=== PATIENT | female | born 1980 | race Two or more races ===

== ENCOUNTER 2018-01-01 20:13 | Observation (INO) | payer MEDICAID ==
[~2018-01-01] VITALS: Ht 154.9 cm; Wt 69.9 kg
[2018-01-01] MEDS ORDERED: NKM (20:38)
[2018-01-01 20:40] VITALS: BP 135/84
[2018-01-01 21:00] VITALS: BP 116/70
[2018-01-01 21:02] VITALS: BP 126/71
[2018-01-01 21:04] VITALS: BP 120/63
--- NOTE | 2018-01-01 21:07 | Emergency Room Report ---
History of Present Illness General Chief Complaint: Abdominal Pain Source: Patient Present Illness HPI Patient presents after syncopal episode. She was going to the bathroom and had some dysuria. She was having some lower abdominal pain that's fairly severe. She rates it 5/10 and nonradiating. It's constant. She has never passed out before. She woke up on the bathroom floor after banging her head when she passed out. She has been feeling nauseated ever since that. Her last period was abnormal. She bled minimall on the and with her last period being on November 19. She doesn't have breast tenderness. She does have a 5-year-old daughter at home. She denies any fevers or chills. No current vaginal bleeding or discharge. She is trying to get . No fevers, chest pain, palpitations, rashes, diarrhea, joint pain, polies. No major medical problems. She believes she is Rh +. Allergies: Coded Allergies: No Known Allergies (Unverified , 01/01/18) Patient History Past Medical History: see triage record Social History: Denies: smoking, alcohol use, drug use Social History Narrative 7 yo at home - Last Menstrual Period: 12/20/17 abnormal : 1 Para: 1 Reviewed Nursing Documentation: PMH: Agreed; PSxH: Agreed Nursing Documentation-PM Past Medical History: No Stated History Review of Systems All Other Systems: negative except mentioned in HPI Physical Exam Vital Signs Date Time Temp Pulse Resp B/P (MAP) Pulse Ox O2 Delivery O2 Flow Rate FiO2 01/01/18 20:33 98.3 75 16 135/84 98 Room Air 98.2 Sp02 EP Interpretation: reviewed, normal General Appearance: well appearing, no apparent distress, GCS 15 Head: normocephalic, other - tender forehead Eyes: bilateral eye normal inspection, bilateral eye PERRL, bilateral eye EOMI ENT: moist mucus membranes Neck: supple Respiratory: lungs clear, normal breath sounds Cardiovascular #1: regular rate, rhythm Cardiovascular #2: 2+ radial (R) Gastrointestinal: normal inspection, no mass, non-distended, no rebound, guarding - suprapubic, tenderness - suprapubic Genitourinary: no CVA tenderness, deferred - for ultrasound Musculoskeletal: back normal, gait/station normal, normal range of motion Neurologic: alert, oriented x3, bakery manager III-XII nml as tested, motor strength/tone normal, DTRs symmetric, sensory intact, cerebellar normal Psychiatric: mood/affect normal Skin: normal inspection, warm/dry Medical Decision Making Diagnostic Impression: Primary Impression: Ruptured ectopic Additional Impression: Syncope Qualified Codes: R55 - Syncope and collapse ER Course Patient presents with syncope lower abdominal pain and abnormal last period. Differential includes , ectopic, ruptured ovarian cyst, UTI, vasovagal , hemorrhagic shock amongst others. Evaluation will be with labs and ultrasound. Patient be evaluated with orthostatic vital signs and receive IV hydration. She is declining morphine at this time even though the pain is 8/10 she'll be given Tylenol. Patient not orthostatic. Urine is positive. Ultrasound shows an ectopic 6 weeks 3 days with a yolk sac in the left adnexa. There is also fluid in the cul-de- sac. The patient says she has waves of pain that are severe rigidity almost passed out. We are calling our PHP SOFTWARE ENGINEER. Discussed with Dr. Ovalle at 22:40 who requests quantitative HCG. Beta 23,363. Dr. Ovalle calling nursing general road supervisor for bringing in OR team. Laboratory Tests Test 01/01/18 20:47 01/01/18 21:14 White Blood Count 12.5 K/UL (4.8-10.8) H Red Blood Count 4.57 M/UL (4.20-5.40) Hemoglobin 13.8 G/DL (12.0-16.0) Hematocrit 39.8 % (37.0-47.0) Mean Corpuscular Volume 87 FL (80-99) Mean Corpuscular Hemoglobin 30.2 PG (27.0-31.0) Mean Corpuscular Hemoglobin Concent 34.7 G/DL (32.0-36.0) Red Cell Distribution Width 11.4 % (11.6-14.8) L Platelet Count 359 K/UL (150-450) Mean Platelet Volume 7.1 FL (6.5-10.1) Neutrophils (%) (Auto) 76.3 % (45.0-75.0) H Lymphocytes (%) (Auto) 16.3 % (20.0-45.0) L Monocytes (%) (Auto) 5.1 % (1.0-10.0) Eosinophils (%) (Auto) 1.4 % (0.0-3.0) Basophils (%) (Auto) 0.9 % (0.0-2.0) Prothrombin Time 9.3 SEC (9.30-11.50) Prothrombin Time INR 0.9 (0.9-1.1) PTT 25 SEC (23-33) Urine Color Pale yellow Urine Appearance Clear Urine pH 6.5 (4.5-8.0) Urine Specific [place] 1.010 (1.005-1.035) Urine Protein Negative (NEGATIVE) Urine Glucose (UA) Negative (NEGATIVE) Urine Ketones Negative (NEGATIVE) Urine Occult Blood 2+ (NEGATIVE) H Urine Nitrite Negative (NEGATIVE) Urine Bilirubin Negative (NEGATIVE) Urine Urobilinogen Normal MG/DL (0.0-1.0) Urine Leukocyte Esterase Negative (NEGATIVE) Urine RBC 0-2 /HPF (0 - 2) Urine WBC 0-2 /HPF (0 - 2) Urine Squamous Epithelial Cells Few /LPF (NONE/OCC) Urine Bacteria Few /HPF (NONE) Urine HCG, Qualitative Positive (NEGATIVE) Sodium Level 141 MMOL/L (136-145) Potassium Level 3.9 MMOL/L (3.5-5.1) Chloride Level 105 MMOL/L (98-107) Carbon Dioxide Level 25 MMOL/L (21-32) Anion Gap 11 mmol/L (5-15) Blood Urea Nitrogen 7 mg/dL (7-18) Creatinine 0.6 MG/DL (0.55-1.30) Estimate Glomerular Filtration Rate > 60 mL/min (>60) Glucose Level 98 MG/DL (74-106) Calcium Level 9.2 MG/DL (8.5-10.1) Total Bilirubin 0.2 MG/DL (0.2-1.0) Aspartate Amino Transferase (AST) 24 U/L (15-37) Alanine Aminotransferase (ALT) 38 U/L (12-78) Alkaline Phosphatase 77 U/L (46-116) Total Protein 7.7 G/DL (6.4-8.2) Albumin 3.9 G/DL (3.4-5.0) Globulin 3.8 g/dL Albumin/Globulin Ratio 1.0 (1.0-2.7) Lipase 111 U/L (73-393) Human Chorionic Gonadotropin, Quant 54435 mIU/mL (1-6) H Rhythm Strip Diag. Results Rhythm: NSR, no PVC's, no ectopy CT/MRI/US Diagnostic Results CT/MRI/US Diagnostic Results : Imaging Test Ordered: pelvic Impression adnexal ectopic 6 weeks, 3 days with heart beat 140 + fluid in cul de sac Last Vital Signs Date Time Temp Pulse Resp B/P (MAP) Pulse Ox O2 Delivery O2 Flow Rate FiO2 01/02/18 00:50 98.3 70 15 120/63 100 Room Air 98.3 Status: improved Disposition: ADMITTED INPATIENT Condition: Serious Brendan Garza M.D. Jan 01, 2018 21:07
[2018-01-01 21:41] LABS: BASOPHILS % (AUTO) 0.9 % (0.0-2.0); EOSINOPHILS % (AUTO) 1.4 % (0.0-3.0); HEMATOCRIT 39.8 % (37.0-47.0); HEMOGLOBIN 13.8 G/DL (12.0-16.0); LYMPHOCYTES % (AUTO) 16.3 % (20.0-45.0); MEAN CORPUSCULAR VOLUME 87 FL (80-99); MONOCYTES % (AUTO) 5.1 % (1.0-10.0); NEUTROPHILS % (AUTO) 76.3 % (45.0-75.0); PLATELET COUNT 359 K/UL (150-450); RED BLOOD COUNT 4.57 M/UL (4.20-5.40); RED CELL DISTRIBUTION WIDTH 11.4 % (11.6-14.8); WHITE BLOOD COUNT 12.5 K/UL (4.8-10.8)
[2018-01-01 21:46] LABS: APPEARANCE,URINE CLEAR; BILIRUBIN, URINE NEGATIVE (NEGATIVE); COLOR,URINE PALE YELLOW; GLUCOSE, URINE (UA) NEGATIVE (NEGATIVE); KETONES,URINE NEGATIVE (NEGATIVE); LEUKOCYTE ESTERASE ,URINE NEGATIVE (NEGATIVE); NITRITE,URINE NEGATIVE (NEGATIVE); PH,URINE 6.5 (4.5-8.0); PROTEIN,URINE NEGATIVE (NEGATIVE); UROBILINOGEN,URINE NORMAL MG/DL (0.0-1.0)
[2018-01-01 21:59] LABS: ANION GAP 11 mmol/L (5-15); BLOOD UREA NITROGEN 7 mg/dL (7-18); CALCIUM 9.2 MG/DL (8.5-10.1); CARBON DIOXIDE 25 MMOL/L (21-32); CHLORIDE 105 MMOL/L (98-107); CREATININE 0.6 MG/DL (0.55-1.30); INR 0.9 (0.9-1.1); POTASSIUM 3.9 MMOL/L (3.5-5.1); SODIUM 141 MMOL/L (136-145)
[2018-01-01 22:03] LABS: ALANINE AMINOTRANSFERASE 38 U/L (12-78); ALBUMIN 3.9 G/DL (3.4-5.0); ALKALINE PHOSPHATASE 77 U/L (46-116); ASPARTATE AMINO TRANSFERASE 24 U/L (15-37); BILIRUBIN,TOTAL 0.2 MG/DL (0.2-1.0)
[2018-01-01 22:30] VITALS: BP 116/68
[2018-01-02] VITALS (9 sets, daily range): BP systolic 96–120; BP diastolic 51–67
[2018-01-02] MEDS ORDERED: Ketorolac 30mg Inj ONE (01:00)
[2018-01-02] MEDS ORDERED: fentaNYL 100 mcg/2 mL IV ONE (01:00)
[2018-01-02] MEDS ORDERED: Midazolam 2mg/2ml Inj ONE (01:00)
[2018-01-02] MEDS ORDERED: Propofol 200mg/20ml IV ONE (01:00)
[2018-01-02] MEDS ORDERED: Esmolol 100mg/10ml Inj ONE (01:00)
[2018-01-02] MEDS ORDERED: Glycopyrrolate 0.2mg/ml 1ml Vial ONE (01:00)
[2018-01-02] MEDS ORDERED: Zemuron 50mg/5ml Inj IV ONE (01:00)
[2018-01-02] MEDS ORDERED: Sterile Water Irrig 1000ml IRRIG ONE (01:00)
[2018-01-02] MEDS ORDERED: Dexamethasone 4mg/ml vial ONE ×2 (01:00)
[2018-01-02] MEDS ORDERED: NS Irrig 1000ml ONE (01:00)
[2018-01-02] MEDS ORDERED: Lidocaine 1% MPF 10mg/ml 5ml ONE (01:00)
[2018-01-02] MEDS ORDERED: LR 1000ml ONE ×2 (01:00)
[2018-01-02] MEDS ORDERED: Neostigmine 1mg/ml 10ml Inj ONE (01:00)
--- NOTE | 2018-01-02 01:08 | Short Stay Surgery H&P ---
History of Present Illness History of Present Illness Chief Complaint Severe Left lower abdominal pain and syncopal episode HPI Keke Arreaga is a 37 year old female who was admitted for Ectopic POS blood in the cul-de-sac, BHCG > 20,000, No IUP seen on U/S sac seen in the Left Adnexa on U/S Patient History Allergies: Coded Allergies: No Known Allergies (Unverified , 01/01/18) Medication History Scheduled No Known Medications* (NKM - No Known Medications*), 0 ., (Reported) Review of Systems Cardiovascular: Denies: no symptoms, see HPI, hypertension, CAD - stable, angina, ND, CABG, dysrhythmia, CHF, valvular disease, rheumatic heart disease, peripheral vascular disease, source of infx - skin, source of infx-indw cath, source of infx-prosthesis, other Respiratory: Denies: no symptoms, see HPI, asthma, chronic bronchitis, pneumonia, COPD, URI, tuberculosis, sleep apnea, CPAP, home 02, other Skeletal: Denies: no symptoms, see HPI, osteroarthritis, rheumatoid arthritis, spinal disc disease, trauma, other Gastrointestinal: Denies: no symptoms, see HPI, obesity, peptic ulcer disease, gastro esophageal reflux disease, hiatal hernia, jaundice, hepatitis A,B,C, other Genitourinary: Reports: no symptoms, see HPI - Severe Left Lower Quadrant pain , renal insufficiency, endstage renal disease, dialysis, UTI, urinary retention , BPH, other Neurologic: Denies: no symptoms, see HPI, seizure, stroke/TIA, neuropathy, neuro muscular disease, other Endocrine: Denies: no symptoms, see HPI, diabetes - type 1, diabetes - type 2, thyroid, post menopausal, other Hematologic: Denies: no symptoms, see HPI, anemia, coagulopathy, prior transfusion, other Physical Exam Vital Signs Last Vital Signs Date Time Temp Pulse Resp B/P (MAP) Pulse Ox O2 Delivery O2 Flow Rate FiO2 01/02/18 00:40 70 15 120/63 100 Room Air 01/01/18 22:39 98.3 Labs Laboratory Tests Test 01/01/18 20:47 01/01/18 21:14 White Blood Count 12.5 K/UL (4.8-10.8) H Red Blood Count 4.57 M/UL (4.20-5.40) Hemoglobin 13.8 G/DL (12.0-16.0) Hematocrit 39.8 % (37.0-47.0) Mean Corpuscular Volume 87 FL (80-99) Mean Corpuscular Hemoglobin 30.2 PG (27.0-31.0) Mean Corpuscular Hemoglobin Concent 34.7 G/DL (32.0-36.0) Red Cell Distribution Width 11.4 % (11.6-14.8) L Platelet Count 359 K/UL (150-450) Mean Platelet Volume 7.1 FL (6.5-10.1) Neutrophils (%) (Auto) 76.3 % (45.0-75.0) H Lymphocytes (%) (Auto) 16.3 % (20.0-45.0) L Monocytes (%) (Auto) 5.1 % (1.0-10.0) Eosinophils (%) (Auto) 1.4 % (0.0-3.0) Basophils (%) (Auto) 0.9 % (0.0-2.0) Prothrombin Time 9.3 SEC (9.30-11.50) Prothromb Time International Ratio 0.9 (0.9-1.1) Activated Partial Thromboplast Time 25 SEC (23-33) Urine Color Pale yellow Urine Appearance Clear Urine pH 6.5 (4.5-8.0) Urine Specific [place] 1.010 (1.005-1.035) Urine Protein Negative (NEGATIVE) Urine Glucose (UA) Negative (NEGATIVE) Urine Ketones Negative (NEGATIVE) Urine Occult Blood 2+ (NEGATIVE) H Urine Nitrite Negative (NEGATIVE) Urine Bilirubin Negative (NEGATIVE) Urine Urobilinogen Normal MG/DL (0.0-1.0) Urine Leukocyte Esterase Negative (NEGATIVE) Urine RBC 0-2 /HPF (0 - 2) Urine WBC 0-2 /HPF (0 - 2) Urine Squamous Epithelial Cells Few /LPF (NONE/OCC) Urine Bacteria Few /HPF (NONE) Urine HCG, Qualitative Positive (NEGATIVE) Sodium Level 141 MMOL/L (136-145) Potassium Level 3.9 MMOL/L (3.5-5.1) Chloride Level 105 MMOL/L (98-107) Carbon Dioxide Level 25 MMOL/L (21-32) Anion Gap 11 mmol/L (5-15) Blood Urea Nitrogen 7 mg/dL (7-18) Creatinine 0.6 MG/DL (0.55-1.30) Estimat Glomerular Filtration Rate > 60 mL/min (>60) Glucose Level 98 MG/DL (74-106) Calcium Level 9.2 MG/DL (8.5-10.1) Total Bilirubin 0.2 MG/DL (0.2-1.0) Aspartate Amino Transf (AST/SGOT) 24 U/L (15-37) Alanine Aminotransferase (ALT/SGPT) 38 U/L (12-78) Alkaline Phosphatase 77 U/L (46-116) Total Protein 7.7 G/DL (6.4-8.2) Albumin 3.9 G/DL (3.4-5.0) Globulin 3.8 g/dL Albumin/Globulin Ratio 1.0 (1.0-2.7) Lipase 111 U/L (73-393) Human Chorionic Gonadotropin, Quant 80648 mIU/mL (1-6) H Skin: normal HENT: normal Heart: normal Lungs: normal Abdomen: abnormal - Pain with rebound on LLQ. Mildly distended abdomen Extremities: normal Genitourinary: normal Plan Plan of Care Video-laparoscopy Possible Left Salpingotomy, Possible Left Salpingectomy D&C Final Diagnosis: (1) Ruptured ectopic (2) Syncope Attestation Are the patient's medical conditions optimized for surgery? Attestation Response: yes ALIZA QUIÑONES Jan 02, 2018 01:08
[2018-01-02] MEDS ORDERED: NS Irrig 1000ml IRRIG ONE (01:10)
[2018-01-02] MEDS ORDERED: Ropivacaine 5mg/ml Vial 30ml INJ ONE (01:10)
[2018-01-02] MEDS ORDERED: fentaNYL 100 mcg/2 mL IV PRN (02:00)
[2018-01-02] MEDS ORDERED: Hydromorphone 0.5mg/0.5ml inj IVP PRN (02:00)
--- NOTE | 2018-01-02 02:02 | Anethesia Preoperative Eval ---
Anesthesia Pre-op PMH/ROS General Date of Evaluation: Jan 02, 2018 Time of Evaluation: 01:00 Anesthesiologist: makenzie ASA Score: ASA 1 Mallampati Score Class I : Soft palate, uvula, fauces, pillars visible Class II: Soft palate, uvula, fauces visible Class III: Soft palate, base of uvula visible Class IV: Only hard plate visible Mallampati Classification: Class II Surgeon: Yamile Diagnosis: Ruptured Ectopic Surgical Procedure: Treatment of ectopic ; D&C Anesthesia History: none Family History: no anesthesia problems Allergies: Coded Allergies: No Known Allergies (Unverified , 01/01/18) Medications: see eMAR Past Medical History Cardiovascular: Denies: HTN, CAD, [place], valve dz, arrhythmia, other Pulmonary: Denies: asthma, COPD, REILLY, other Gastrointestinal/Genitourinary: Denies: GERD, CRI, ESRD, other Neurologic/Psychiatric: Denies: dementia, CVA, depression/anxiety, TIA, other Endocrine: Denies: DM, hypothyroidism, steroids, other HEENT: Denies: cataract (L), cataract (R), glaucoma, LIME (L), LIME (R), other Hematology/Immune: Denies: anemia, DVT, bleeding disorder, other Musculoskeletal/Integumentary: Denies: OA, RA, DJD, DDD, edema, other PSxH Narrative: none Anesthesia Pre-op Phys. Exam Physician Exam Last Vital Signs Date Time Temp Pulse Resp B/P (MAP) Pulse Ox O2 Delivery O2 Flow Rate FiO2 01/02/18 00:50 98.3 70 15 120/63 100 Room Air 98.3 Constitutional: NAD Neurologic: CN 2-12 intact Cardiovascular: RRR Respiratory: CTA Gastrointestinal: S/NT/ND Airway Exam Mallampati Classification 2 Mallampati Score: Class II MO: full Neck: normal ROM: full Dentures: no upper, no lower Anesthesia Pre-op A/P Labs Hematology Test 01/01/18 20:47 White Blood Count 12.5 K/UL (4.8-10.8) H Red Blood Count 4.57 M/UL (4.20-5.40) Hemoglobin 13.8 G/DL (12.0-16.0) Hematocrit 39.8 % (37.0-47.0) Mean Corpuscular Volume 87 FL (80-99) Mean Corpuscular Hemoglobin 30.2 PG (27.0-31.0) Mean Corpuscular Hemoglobin Concent 34.7 G/DL (32.0-36.0) Red Cell Distribution Width 11.4 % (11.6-14.8) L Platelet Count 359 K/UL (150-450) Mean Platelet Volume 7.1 FL (6.5-10.1) Neutrophils (%) (Auto) 76.3 % (45.0-75.0) H Lymphocytes (%) (Auto) 16.3 % (20.0-45.0) L Monocytes (%) (Auto) 5.1 % (1.0-10.0) Eosinophils (%) (Auto) 1.4 % (0.0-3.0) Basophils (%) (Auto) 0.9 % (0.0-2.0) Coagulation Test 01/01/18 20:47 Prothrombin Time 9.3 SEC (9.30-11.50) Prothromb Time International Ratio 0.9 (0.9-1.1) Activated Partial Thromboplast Time 25 SEC (23-33) Chemistry Test 01/01/18 20:47 01/01/18 21:14 Sodium Level 141 MMOL/L (136-145) Potassium Level 3.9 MMOL/L (3.5-5.1) Chloride Level 105 MMOL/L (98-107) Carbon Dioxide Level 25 MMOL/L (21-32) Anion Gap 11 mmol/L (5-15) Blood Urea Nitrogen 7 mg/dL (7-18) Creatinine 0.6 MG/DL (0.55-1.30) Estimat Glomerular Filtration Rate > 60 mL/min (>60) Glucose Level 98 MG/DL (74-106) Calcium Level 9.2 MG/DL (8.5-10.1) Total Bilirubin 0.2 MG/DL (0.2-1.0) Aspartate Amino Transf (AST/SGOT) 24 U/L (15-37) Alanine Aminotransferase (ALT/SGPT) 38 U/L (12-78) Alkaline Phosphatase 77 U/L (46-116) Total Protein 7.7 G/DL (6.4-8.2) Albumin 3.9 G/DL (3.4-5.0) Globulin 3.8 g/dL Albumin/Globulin Ratio 1.0 (1.0-2.7) Lipase 111 U/L (73-393) Human Chorionic Gonadotropin, Quant 42937 mIU/mL (1-6) H Urine Test Test 01/01/18 20:47 Urine HCG, Qualitative Positive (NEGATIVE) Studies Pre-op Studies: EKG - sr Risk Assessment & Plan Plan: general Pre-Antibiotics Drug: ancef Given Within 1 Hr of Incision: Yes Time Given: 01:00 RAMAKRISHNA GILLETTE CRNA Jan 02, 2018 02:02
--- NOTE | 2018-01-02 02:37 | Brief Operative Note ---
Immediate Post Operative Note Operative Note Chief Complaint: Ectopic Pre-op Diagnosis: Left Ectopic Procedure: Left Distal Salpingectomy Post-op Diagnosis: same as pre-op Surgeon: Aliza Quiñones MD Anesthesiologist: Nneka More Anesthesia: general Specimen: yes - EMC, Left Tube Complications: none Condition: stable Fluids: LRingers Estimated Blood Loss: minimal Implant(s) used?: No ALIZA QUIÑONES Jan 02, 2018 02:37
--- NOTE | 2018-01-02 02:44 | Immediate Post-Op Evaluation ---
Immediate Post-Op Evalulation Immediate Post-Op Evalulation Procedure: Treatment of Ectopic ; D&C Date of Evaluation: Jan 02, 2018 Time of Evaluation: 02:43 IV Fluids: 800 Blood Pressure Systolic: 119 Blood Pressure Diastolic: 68 Pulse Rate: 55 Respiratory Rate: 14 O2 Sat by Pulse Oximetry: 99 Temperature (Fahrenheit): 98.5 Pain Score (1-10): 0 Nausea: No Vomiting: No Complications none Patient Status: awake, reacts, patent Hydration Status: adequate Drug: ancef Given Within 1 Hr of Incision: Yes Time Given: 01:00 RAMAKRISHNA GILLETTE CRNA Jan 02, 2018 02:44
[2018-01-02] MEDS: D5 1/2NS 1,000 ML IV SCH ×2 (02:45→12:21)
[2018-01-02] MEDS ORDERED: HYDROmorphone 1mg/ml Carpuject SUBQ PRN (02:45)
[2018-01-02] MEDS ORDERED: Tylenol #3 tab (300mg/30mg) ORAL PRN (02:45)
[2018-01-02] MEDS ORDERED: Norco 5mg/325mg tab ORAL PRN (02:45)
[2018-01-02] MEDS ORDERED: Ketorolac 30mg Inj IV SCH ×2 (02:45→13:00)
--- NOTE | 2018-01-02 04:15 | Operative Note - Dictated ---
DATE OF OPERATION: 01/01/2018 PREOPERATIVE DIAGNOSIS: Ectopic . POSTOPERATIVE DIAGNOSIS: Left ectopic , partially ruptured. PROCEDURE PERFORMED: Left distal salpingectomy and evacuation of hemoperitoneum. SURGEON: Rehan Ovalle M.D. ANESTHESIOLOGIST: Nneka Streeter CRNA. ANESTHESIA TYPE: General endotracheal. PROCEDURE IN DETAIL: After all the appropriate consents were signed, the patient was brought to the operating room and placed on the table in supine position. The patient was then placed in a dorsal lithotomy position. Perineum, vagina, and abdomen were prepped and draped in the usual fashion. The patient was examined under anesthesia. Uterus appeared to be approximately normal size and mobile. At this time, the cervix was grasped and dilated to approximately 8 mm Hegar. The uterus was then curettaged with some products of curettage submitted to pathology. The uterine manipulator was placed and the procedure continued at its abdominal portion. Umbilical incision was made. Veress needle was advanced and the abdomen was insufflated to 15 mmHg. The 11 mm trocar was placed in the umbilicus atraumatically. The laparoscope was advanced and the abdominal cavity was visualized. The pelvis was also visualized and the ectopic was readily visualized on the left side. Distal portion of the tube was severely dilated and there was oozing from the distal portion of the tube. The procedure continued with placing two additional trocars in the midline and lower left quadrant. At this time, the tube was elevated and it was impossible to the bleeding and to express the contents of the tube. At this time, the distal portion of the tube was elevated and bipolar coagulation was applied to coagulate and then used unipolar cutting instruments to excise the distal portion of the tube. Complete hemostasis was noted in that area. The tube and the ectopic were removed from the abdominal cavity. At this time, copious amounts of irrigation and suction followed. The pelvis and the abdomen were fully irrigated and all debris and blood were suctioned. The instruments were now once again visualized and removed one after another under direct visualization with laparoscope. All puncture sites were fully hemostatic. The laparoscope was removed last and the primary umbilical site was fully hemostatic. At this time, #0 Vicryl suture was used to approximate the fascia layer and Steri-Strips and benzoin was placed to approximate the skin layer. The patient was placed in the supine position, awakened from general anesthesia, and transferred to the recovery room in excellent condition. Rehan Ovalle M.D. DR: IRASEMA JOB#: [id number] CC:
--- NOTE | 2018-01-02 08:51 | Diagnostic Imaging Report ---
Indication: Reason For Exam: PAIN, vaginal bleeding Technique: Transabdominal and endovaginal pelvic ultrasound was performed. Findings: Examination demonstrates the uterus to be normal in size. Endometrial thickness is 2.1 cm.. There is no intrauterine identified. There is some fluid in the cul-de-sac. The right ovary contains an anechoic mass measuring 2.6 x 2.6 cm with through transmission consistent with a cyst. In the left adnexa, a gestational sac is identified. There is a pole within this as well as a yolk sac. Cardiac activity is noted within the fetus at a rate of 144 bpm. Reserve-rump length corresponds to 6 weeks 4 days +/- 4 days. Left ovary is noted adjacent to the gestational sac. Impression: Live ectopic in the left adnexa at 6 weeks 4 days. Right ovarian cyst. No intrauterine .
[2018-01-06 12:05] VITALS: BP 116/72
--- NOTE | 2018-01-06 12:05 | 48 Hour Post Anesthesia Eval ---
Post Anesthesia Evaluation Procedure: Treatment of Ectopic ; D&C Date of Evaluation: Jan 06, 2018 Time of Evaluation: 15:40 Blood Pressure Systolic: 116 0: 72 Pulse Rate: 68 Respiratory Rate: 20 Temperature (Fahrenheit): 97.8 O2 Sat by Pulse Oximetry: 98 Airway: patent Nausea: No Vomiting: No Pain Intensity: 2 Hydration Status: adequate Cardiopulmonary Status: stable Mental Status/LOC: patient returned to baseline Follow-up Care/Observations: n/a Post-Anesthesia Complications: none Follow-up care needed: ready to discharge SHARON PERRY M.D. Jan 06, 2018 12:05
== END 2018-01-02 12:49 | disposition home or self-care (01) ==
LOC: EMR 21:15 → EDBEDREQ 23:31 → EDBEDREQSVC 23:31 → EDBEDREQ 23:32 → SDS 01-02 00:51 → 3E 01-02 06:26
DX: O00.90 Unspecified ectopic pregnancy without intrauterine pregnancy (principal); R55 Syncope and collapse; N83.201 Unspecified ovarian cyst, right side; N18.6 End stage renal disease; Z99.2 Dependence on renal dialysis; Z3A.01 Less than 8 weeks gestation of pregnancy
CPT/HCPCS: 36415; 59151; 76830; 76856; 80053; 81003; 81025; 83690; 84702; 85025; 85610; 85730; 86850; 86900; 86901; 99285; G0378; J0690; J1100; J1885; J2250; J2704; J2710; J2795; J3010; J7120; Z7512; 94003; 94150